=== PATIENT | female | born 1955 | race Caucasian/White ===

== ENCOUNTER 2024-06-28 15:29 | Emergency (ER) | payer OTHER ==
[2024-06-28 15:49] VITALS: BP 132/84; PULSE 79; RESP 18; TEMP 98.4; BMI 29.3
[2024-06-28] MEDS ORDERED: ACETAMINOPHEN 325 MG TABLET (FP) ONE (16:52)
[2024-06-28 16:54] LABS: EPI CELLS 33 /uL (0-25.1); HYALINE CASTS 1 /uL (0-3.1); PH,URINE 5.5 (5.0-8.0); URINE APPEARANCE CLEAR; URINE BACTERIA 317 /uL (0-1359); URINE BILIRUBIN NEGATIVE (NEGATIVE); URINE COLOR YELLOW; URINE GLUCOSE (UA) NEGATIVE (NEGATIVE); URINE KETONE NEGATIVE (NEGATIVE); URINE LEUK ESTERASE 2+ (NEGATIVE); URINE NITRITE NEGATIVE (NEGATIVE); URINE PROTEIN NEGATIVE (NEGATIVE); URINE UROBILINOGEN 0.2 mg/dL (0.2-1.0); URINE WBC 215 /uL (0-25.8)
[2024-06-28 16:55] LABS: BASO % 0.7 % (0-2.0); HEMATOCRIT 42.9 % (32.4-45.2); HEMOGLOBIN 14.2 GM/dL (10.7-15.3); MCH 29.6 pg (25.7-33.7); MCHC 33.2 g/dl (32.0-36.0); MEAN CELL VOLUME 89.2 fl (80-96); MEAN PLT VOLUME 8.5 fl (7.5-11.1); MONO % 7.1 % (3.8-10.2); NEUT % 59.2 % (42.8-82.8); PLATELET COUNT 261 10^3/uL (134-434); RBC 4.81 M/mm3 (3.60-5.2); RDW 13.9 % (11.6-15.6); WHITE BLOOD COUNT 7.5 K/mm3 (4.0-10.0)
[2024-06-28] MEDS: ACETAMINOPHEN 500 MG TABLET (FP) PO ONE (16:59)
[2024-06-28 18:04] LABS: CALCIUM 9.3 mg/dL (8.5-10.1)
[2024-06-28 18:05] LABS: ALBUMIN 3.9 g/dl (3.4-5.0); BLOOD UREA NITROGEN 16.3 mg/dL (7-18)
[2024-06-28 18:08] LABS: CREATININE 0.8 mg/dL (0.55-1.3)
[2024-06-28 18:10] LABS: BILIRUBIN,TOTAL 0.3 mg/dL (0.2-1); TOT PROT 7.4 g/dl (6.4-8.2)
[2024-06-28 18:23] LABS: URINE RBC 65.5 /uL (0-23.9)
[2024-06-28] MEDS ORDERED: CEFTRIAXONE 1 G/50 ML PREMIX 50 ML IVPB ONE (18:30)
[2024-06-28] MEDS ORDERED: TAMSULOSIN HCL 0.4 MG CAP ONE (18:30)
[2024-06-28] MEDS: TAMSULOSIN HCL 0.4 MG CAP PO ONE (18:42)
[2024-06-28] MEDS: CEFTRIAXONE 1,000 MG in DEXTROSE 5%-WATER - 50 ML IVPB ONE (18:42)
== END 2024-06-28 19:48 | disposition home or self-care (01) ==
LOC: JER 15:29
DX: N13.2 Hydronephrosis with renal and ureteral calculous obstruction (principal); R10.31 Right lower quadrant pain; R11.2 Nausea with vomiting, unspecified
CPT/HCPCS: 36415; 74176-TC; 80053; 81003; 83690; 85025; 87086; 99285-25

== ENCOUNTER 2024-09-07 05:24 | Day surgery (SDC) | payer OTHER ==
[2024-09-04 16:47] VITALS: BMI 28.3
[2024-09-07] MEDS ORDERED: MIDAZOLAM HCL 2 MG/2 ML SINGLE DOSE VIAL ONE (13:55)
[2024-09-07 14:36] VITALS: RESP 20
[2024-09-07 15:05] VITALS: BP 108/67; PULSE 78; TEMP 97.5
== END 2024-09-07 16:15 | disposition home or self-care (01) ==
LOC: JASU-SURG 05:24
PROVIDERS: ATTEND Urology
PROC: 0TF3XZZ Fragmentation in Right Kidney Pelvis, External Approach (ICD-10-PCS; principal; 2024-09-07 14:30)
DX: N20.0 Calculus of kidney (principal)